=== PATIENT | female | born 1990 | race Caucasian/White ===

== ENCOUNTER 2021-07-17 08:05 | Outpatient (CLI) | payer OTHER | END 2021-07-17 08:06 | disposition home or self-care (01) | LOC: TBSIIMAG 08:05 | PROVIDERS: ATTEND Neurological Surgery | DX: M51.16 Intervertebral disc disorders with radiculopathy, lumbar region (principal); M51.37 Other intervertebral disc degeneration, lumbosacral region | CPT/HCPCS: 72148 ==